=== PATIENT | male | born 1985 | race Caucasian/White ===

== ENCOUNTER 2022-04-10 10:38 | Emergency (ER) | payer OTHER, SELFPAY ==
[2022-04-10 11:02] VITALS: BP 116/86; PULSE 89; RESP 20; O2SAT 100; BMI 21.7
[2022-04-10 11:46] VITALS: BP 116/86; PULSE 89; RESP 20; TEMP 36.6; O2SAT 100; BMI 21.7
--- NOTE | 2022-04-10 12:16 | HMH.EDUTC ---
[facility] [place] Clinical Impression: Right arm pain Disposition: Home, Self-Care Condition on Discharge: Good Additional Instructions: Rest the extremity, apply ice for 15 minutes as tolerated three or four times per day, Wear the haseeb wrap for compression, Elevate the extremity as tolerated while you are resting. Take the steroids as directed. Follow up with Dr. Carbone (orthopedics) if you are not getting better. I put in a referral but you need to call his office and schedule an appointment. Follow up with your regular doctor. GO TO THE ER FOR ANY WORSENING SYMPTOMS Prescriptions: Diclofenac Sodium 1 applic TP BIDP PRN #100 gm PRN Reason: Moderate Pain Transmission Status: Received by [id number] methylPREDNISolone [Medrol] 4 mg PO DIRECTED 6 Days #21 packet Transmission Status: Received by [id number] Referrals: Provider,MD Terry [Primary Care Provider] - Trung Carbone MD [Staff Physician] - Forms: Work/School Release Time of Disposition: 12:30 Medical Decision Making - Medical Records Medical records reviewed: No: I reviewed the patient's medical records. - [place] Inquiry Pt receiving controlled substance: No Vital Signs: 04/10/22 11:02 04/10/22 11:46 04/10/22 12:32 Temperature 97.9 F 97.9 F Temperature Source Oral Pulse Rate 89 Pulse Rate [Left Radial] 89 89 Respiratory Rate 20 20 20 Blood Pressure 116/86 Blood Pressure [Right Arm] 116/86 116/86 Blood Pressure Mean [Right Arm] 96 96 02 Sat by Pulse Oximetry 100 100 Oxygen Delivery Method Room Air [facility] [place] - General Stated complaint: rt arm pain Time Seen by Provider: 04/10/22 12:18 Mode of Arrival: Ambulatory Source of Information: Patient Limitations: No Limitations Description of Symptoms (Recalled from Triage Doc. by RN): pt here for right elbow pain. for 4 days. HEENT Symptoms (Recalled from RN notes): No Resp Symptoms (Recalled from RN notes): No Skin Symptoms (Recalled from RN notes): No MS Symptoms (Recalled from RN notes): Yes Functional Status (Recalled from RN notes): wnl - History of Present Illness Provider Complaint: He is here with right elbow pain. He denies any injury. He states the pain occurs when he bends and straightens the elbow. He denies any other joint pain or complaints. - Related Data Previous Rx's Medication Instructions Recorded Diclofenac Sodium 1 applic TP BIDP PRN #100 gm 04/10/22 methylPREDNISolone [Medrol] 4 mg PO DIRECTED 6 Days #21 04/10/22 packet Allergies Allergy/AdvReac Type Severity Reaction Status Date / Time No Known Allergies Allergy Verified 04/10/22 11:49 - Worker's Comp Is this a Worker's Comp case?: No [facility] History - Hepatitis A Screen Attestation statement:: This patient has been screened for Hepatitis A risk factors. I have reviewed the patient's past medical history: Yes ROS Obtained: Yes All systems reviewed & no additional complaints - Constitutional Constitutional: Denies chills, Denies fever(s) - Eyes Eyes: Denies eye discharge - ENT Ears, Nose, Mouth, and Throat: Denies dizziness, Denies otalgia, Denies sore throat - Cardiovascular Cardiovascular: Denies chest pain - Respiratory Respiratory: Denies chest congestion, Denies cough - Gastrointestinal Gastrointestingal: Denies: abdominal pain, diarrhea, nausea, vomiting - Musculoskeletal Musculoskeletal: Reports as per HPI - Integumentary/Breasts Skin/Breast: Denies redness, Denies rash, Denies wounds - Neurologic Neurologic: Denies tingling/numbness/burning sensations Physical Exam - General General appearance: alert, in no apparent distress - Head Head exam: atraumatic, normocephalic, normal inspection - Eye Eye exam: Present: normal appearance, PERRL, EOMI - ENT ENT exam: Present: normal exam, normal oropharynx, mucous membranes moist, TM's normal bilaterally, normal external ear exam - Neck Neck exam: Pre
[2022-04-10 12:32] VITALS: BP 116/86; PULSE 89; RESP 20; TEMP 36.6
== END 2022-04-10 12:41 | disposition home or self-care (01) ==
PROVIDERS: Emergency Provider Nurse Practitioner Family
DX: M25.521 Pain in right elbow (principal); Z79.52 Long term (current) use of systemic steroids
CPT/HCPCS: 99213; G0463